=== PATIENT | female | born 1945 | race Caucasian/White ===

== ENCOUNTER 2018-11-04 10:13 | Inpatient (IN) | payer MEDICARE ==
[~2018-11-04] VITALS: Ht 172.7 cm; Wt 80.4 kg
--- NOTE | 2018-11-04 10:24 | NUR ---
PT BROUGHT IN BY AMBULANCE FOR BACK PROBLEMS PT ALERT WITH ORIENTATION X 3.
[2018-11-04] MEDS ORDERED: MORPHINE SULFATE INJ 4 MG/ML DISP.SYRIN IM ONE (11:00)
[2018-11-04] MEDS ORDERED: MORPHINE SULFATE INJ 4 MG/ML DISP.SYRIN ONE ×2 (11:02→12:32)
[2018-11-04] MEDS ORDERED: NAPROXEN 250 MG TABLET PO ONE (11:30)
[2018-11-04] MEDS ORDERED: HYDROCODONE/APAP 5/325MG 1 EACH TABLET PO ONE (11:30)
[2018-11-04] MEDS ORDERED: NAPROXEN 250 MG TABLET ONE (11:40)
[2018-11-04] MEDS ORDERED: HYDROCODONE/APAP 5/325MG 1 EACH TABLET ONE (11:40)
--- NOTE | 2018-11-04 12:27 | NUR ---
PT DISCHARGED BUT PAIN REMAINS RETURNED TO [facility] AWARE
[2018-11-04] MEDS ORDERED: MORPHINE SULFATE INJ 2 MG/ML DISP.SYRIN IM ONE (12:30)
--- NOTE | 2018-11-04 13:23 | NUR ---
PT CHANGED INTO HOS[PITAL GOWN PIV PLACED PENDING ADMISSION.
--- NOTE | 2018-11-04 13:24 | NUR ---
GAVE SECOND DOSE OF 6MG MORPHINE IM WASTED ONLY 2 MG
--- NOTE | 2018-11-04 13:28 | NUR ---
Called nursing catalyst plant supervisor and requested a med surg bed for this pt.
--- NOTE | 2018-11-04 13:28 | NUR ---
Antoine hospitalist, Minor Lipscomb NP
[2018-11-04] MEDS ORDERED: METH4TAB3 PO (13:31)
[2018-11-04] MEDS ORDERED: IBUP200C5 PO (13:31)
--- NOTE | 2018-11-04 13:38 | NUR ---
Daughter of patient, Brittany, would like a phone call when the pt is transferred to her med surg rm. cell phone - [phone]
--- NOTE | 2018-11-04 14:12 | NUR ---
pt is assigned to med surg rm#: [id number], dx: intractable back pain, and accepting: titi martinez np.
--- NOTE | 2018-11-04 15:12 | NUR ---
REPORT GIVEN TO TEZ LEONG ON 3 PT ADMITTED TO ROOM 310-2 ADMITTING MD LAINEZ
--- NOTE | 2018-11-04 15:30 | NUR ---
RN MS NOTES RECEIVED PT FROM E.R. STAFF, PT IS AWAKE, ALERT AND ORIENTED, NO COMPLAINT OF PAIN AT THIS TIME, PT SAID LONG SHE IS NOT MOVING, NOT IN DISTRESS, ASSISTED TO BED, MADE COMFORTABLE, ROOM SET UP ORIENTATION PROVIDED, VERBALIZED UNDERSTANDING, CALL LIGHT PLACED WITHIN REACH, AWAITING ADMITTING ORDERS FROM MD.
[2018-11-04 16:00] VITALS: BP 128/62
[2018-11-04 17:29] LABS: BASOPHILS % (AUTO) 0.3 % (0.0-2.0); EOSINOPHILS % (AUTO) 0.2 % (0.0-6.0); HEMATOCRIT 39 % (33-45); LYMPHOCYTES # (AUTO) 4.3 /CMM (0.8-4.8); MEAN CORPUSCULAR HGB CONC 34 g/dl (31.0-36.0); MEAN CORPUSCULAR VOLUME 87 fL (82-100); MONOCYTES # (AUTO) 0.7 /CMM (0.1-1.30); MONOCYTES % (AUTO) 5.5 % (2.0-12.0); NEUTROPHILS # (AUTO) 8.3 /CMM (1.8-8.9); PLATELET COUNT (AUTO) 346 /CMM (150-450); RED BLOOD CELL COUNT(AUTO) 4.47 MIL/uL (4.0-5.2); WHITE BLOOD COUNT (AUTO) 13.3 K/uL (4.3-11.0)
[2018-11-04] MEDS ORDERED: MAG HYDROX/AL HYDROX/SIMETH 30 ML UDC PO PRN (17:30)
[2018-11-04] MEDS ORDERED: MAGNESIUM HYDROXIDE 30 ML UDC PO PRN (17:30)
[2018-11-04] MEDS ORDERED: HYDROCODONE/APAP 5/325MG 1 EACH TABLET PO PRN (17:30)
[2018-11-04] MEDS ORDERED: Z GUARD REMEDY 2 OZ OINT TP PRN (17:30)
[2018-11-04] MEDS ORDERED: ACETAMINOPHEN 325 MG TABLET PO PRN (17:30)
[2018-11-04] MEDS ORDERED: ONDANSETRON HCL/PF 4 MG/2 ML VIAL IVP PRN (17:30)
[2018-11-04 17:43] LABS: ALBUMIN 3.8 g/dL (3.4-5.0); BILIRUBIN,TOTAL 0.6 mg/dL (0.2-1.0); CREATININE 0.7 mg/dL (0.6-1.3); MAGNESIUM 1.8 mg/dL (1.8-2.4); PHOSPHORUS 4.9 mg/dL (2.5-4.9); POTASSIUM 3.9 mmol/L (3.5-5.1)
[2018-11-04] MEDS: HYDROCODONE/APAP 10/325MG 1 EA TABLET PO PRN (17:48)
[2018-11-04 17:52] LABS: THYROID STIMULATING HORMONE 2.278 uIU/mL (0.358-3.74)
[2018-11-04] MEDS: ENOXAPARIN SODIUM 40 MG/0.4 ML DISP.SYRIN SQ SCH (18:30)
[2018-11-04] MEDS: MORPHINE SULFATE INJ 4 MG/ML DISP.SYRIN IV PRN ×2 (19:01→23:24)
--- NOTE | 2018-11-04 19:24 | NUR ---
RN MS NOTES PT IN BED, ALERT AND ORIENTED, SEEN AND EXAMINED BY TREVON LEA CODING TECH, PLAN OF CARE DISCUSSED WITH PT, VERBALIZED UNDERSTANDING, PAIN MEDICATION GIVEN ORDERED, OFFERED HOT PACKS AND PILLOWS, DAUGHTER AT BEDSIDE, NEEDS ATTENDED, ENDORSED TO NIGHT NURSE FOR CONTINUITY OF CARE.
--- NOTE | 2018-11-04 19:31 | NUR ---
MS STAFF EDUCATOR INITIAL NOTES PT CHECKED AND SEEN IN BED ON LYING POSITION WITH PILLOWS ON LEFT LEG BEHIND HER KNEE. AWAKE AND ALERT TALKING OT HER DAUGHTER SAYING HER PAIN MUCH BETTER AFTER THE SHOT BUT SEEMS WILL BE ON AND OFF SPECIALLY WHEN SHE'S MOVING. EDUCATE ABOUT HER MEDICATION AND THE HE BLOOD TEST IN AM AND PT UNDERSTOOD WELL. AWARE HOW TO USE THE CALL LIGHT AND ENCOURAGE HER TO USE IT IF SHE NEED SOME HELP OR ASSISTANCE. KEPT HER WARM AND COMFORTABLE AT LL TIMES. FAMILY AT THE BEDSIDE FOR NOW. WILL CONTINUE MONITORING.
[2018-11-04 20:00] VITALS: BP 126/65
--- NOTE | 2018-11-04 23:25 | NUR ---
MORPHINE GIVEN FOR C/O SEVERE L HIP PAIN. WILL CONT TO MONITOR,
--- NOTE | 2018-11-04 23:45 | NUR ---
hydroelectric systems technician notes pt still on too much pain like shooting pain special the left legs from left groin area to her foot even after the pain shot. and patient stated that worse than delivering her baby, 2 daughters at the bedside and one of them asking for any neuro surgeon and stating maybe she needs some operation right away or maybe you can ask someone to help to call neuro doctor. i told them i will call applications sales consultant Md to let him, know what's happening at this time . per hospital protocol i should call the charge nurse but she's busy also assisting the other nurse, so I called roundhouse supervisor Julia to talk to the family to calm them down while I'm calling the applications sales consultant MD. Spoke to Dr Fallon and told him what's the problem and he ordered Toradol 15mg IVP q 6 PRN.
--- NOTE | 2018-11-04 23:50 | NUR ---
ms ashwini notes after i spoke to dr Fallon I told the family and pt what pain medication he ordered but Pt refused and insisting to have muscle relaxant instead. called Dr Fallon and told him the patient refused toradol and insisting to have muscle relaxant. he ordered Flexeril tablet 10 mg Q 8 hrs PRN . noted and carried out.
[2018-11-04] MEDS: CYCLOBENZAPRINE 10 MG TABLET PO PRN (23:59)
--- NOTE | 2018-11-04 23:59 | NUR ---
ms ashwini notes Flexeril tablet 10 mg po given as ordered. Pt and her daughters stated "thank you ". will continue monitoring. place call light at reach. family will stay for a while until pt fall sleep.
--- NOTE | 2018-11-05 00:34 | NUR ---
ms mardaiaga notes pt daughter Brittany called and checking if her mom still sleeping. i told her that she's sleeping at this time without any discomfort noted. Pt daughter stated "thank you ' and saying she will come in am to speak to the doctor of her mom. Addendum: 11/05/18 at 0239 by LIZ MOORE LVN time called [phone] not [phone]
--- NOTE | 2018-11-05 01:45 | NUR ---
ms exhaust emissions automotive technician notes pt sleeping comfortably in bed at this time without any discomfort noted. breathing even and non-labored. kept her warm and comfortable at all times. place call light at reach.
--- NOTE | 2018-11-05 03:40 | NUR ---
MS WATER POLLUTION SPECIALIST NOTES PT WOKE UP AND HELPED TO USED THE BEDSIDE COMODE BUT NOTICED SHE FEEL PAIN SPECIALLY LEFT LEG, HELPED HER BACK TO BED EDUCATE HER TO TAKE A DEEP BREATH TO HELPED HER RELAXED . AFTER 5 MINUTES TALKING TO HER SHE STARTED TO BACK TO SLEEP , KEPT HER WARM AND COMFORTABLE MUCH POSSIBLE . WILL CONTINUE MONITORING
[2018-11-05] MEDS: MORPHINE SULFATE INJ 4 MG/ML DISP.SYRIN IV PRN ×3 (06:14→21:56)
--- NOTE | 2018-11-05 06:14 | NUR ---
MS PRETZEL COOKER NOTES PT WOKE UP WITH TO MUCH PAIN ON HER LEFT LEG NOTICED SHE'S HOLDING HER LEFT GROIN AREA . 08/20 MORPHINE 2 MG GIVEN BY CHEPE /RN VERÓNICA IVF STAYED AND ENCOURAGED HER TO DO TAKE DEEP BREATH AGAIN LIKE SHE DID BEFORE TO HELPED RELAXED AT THE SAME TIME.
--- NOTE | 2018-11-05 07:15 | NUR ---
MS PICKER CLOSING NOTES PT STILL AWAKE FEEL BETTER OF NOW AND ONLY WHEN SHE DID NOT MOVED HER LEGS NOW. REFUSED TO HAVE HER AM CARE AND SAYING SHE JUST WAIT FOR DAUGHTER BECAUSE SHE WILL BRING HER OWN PAJAMA AND AFTER HER FLEXERIL AT 8AM EVEN I TOLD HER THAT HER FLEXERIL IS PRN Q 8HRS. BUT I TOLD HER THAT I WILL ENDORSE TO AM NURSE. ALL DUE MEDS GIVEN AND ALL NEEDS MET . KEPT HER WARM AND COMFORTABLE AT ALL TIMES. PLACE CALL LIGHT AT REACH.
[2018-11-05 07:22] LABS: BASOPHILS # (AUTO) 0.1 /CMM (0.0-0.2); BASOPHILS % (AUTO) 0.6 % (0.0-2.0); EOSINOPHILS % (AUTO) 0.7 % (0.0-6.0); HEMATOCRIT 39 % (33-45); HEMOGLOBIN 13.2 g/dL (11.5-14.8); LYMPHOCYTES # (AUTO) 5.3 /CMM (0.8-4.8); LYMPHOCYTES % (AUTO) 42.7 % (20.0-44.0); MEAN CORPUSCULAR HGB CONC 34 g/dl (31.0-36.0); MEAN CORPUSCULAR VOLUME 87 fL (82-100); MONOCYTES # (AUTO) 0.7 /CMM (0.1-1.30); MONOCYTES % (AUTO) 5.9 % (2.0-12.0); NEUTROPHILS # (AUTO) 6.2 /CMM (1.8-8.9); NEUTROPHILS % (AUTO) 50.1 % (43.0-81.0); PLATELET COUNT (AUTO) 358 /CMM (150-450); RED BLOOD CELL COUNT(AUTO) 4.46 MIL/uL (4.0-5.2); WHITE BLOOD COUNT (AUTO) 12.3 K/uL (4.3-11.0)
[2018-11-05 07:47] LABS: CALCIUM, SERUM 8.6 mg/dL (8.5-10.1); CARBON DIOXIDE 25 mmol/L (21-32); CHLORIDE 104 mmol/L (98-107); CREATININE 0.7 mg/dL (0.6-1.3); GLUCOSE 86 mg/dL (74-106); MAGNESIUM 1.8 mg/dL (1.8-2.4); PHOSPHORUS 4.3 mg/dL (2.5-4.9); POTASSIUM 3.7 mmol/L (3.5-5.1); SODIUM SERUM 141 mmol/L (136-145); UREA NITROGEN, BLOOD 21 mg/dL (7-18)
--- NOTE | 2018-11-05 07:55 | NUR ---
MS RN OPENING NOTE RECEIVED PATIENT IN BED. SLEEPING, EASILY AROUSED WITH VERBAL STIMULI. ORIENTED X4. ON ROOM AIR, TOLERATING WELL. IN NO APPARENT DISTRESS OR DISCOMFORT AT THIS TIME. RESPIRATIONS EVEN AND UNLABORED. DENIES PAIN AND SOB AT THIS TIME. PATIENT IS ABLE TO COMMUNICATE NEEDS. USES BSC FOR ELIMINATION. PATIENT WITH LEFT AC 20G IVC SL, PATENT AND INTACT. PATIENT KEPT COMFORTABLE IN BED. ALL NEEDS ATTENDED. SAFETY MEASURES IN PLACE, BED IN LOW LOCKED POSITION, SIDE RAILS UP X2, CALL LIGHT WITHIN EASY REACH. WILL CONTINUE TO MONITOR.
[2018-11-05 08:00] VITALS: BP 129/85
[2018-11-05] MEDS: CYCLOBENZAPRINE 10 MG TABLET PO PRN ×2 (08:23→16:34)
[2018-11-05] MEDS: DOCUSATE SODIUM 100 MG CAPSULE PO SCH ×2 (08:23→16:34)
[2018-11-05] MEDS: HYDROCODONE/APAP 10/325MG 1 EA TABLET PO PRN ×2 (10:08→18:24)
[2018-11-05 16:00] VITALS: BP 145/85
--- NOTE | 2018-11-05 18:30 | NUR ---
MS RN CLOSING NOTE PATIENT IN BED. ALERT ORIENTED X4. ON ROOM AIR, TOLERATING WELL. IN NO APPARENT DISTRESS OR DISCOMFORT AT THIS TIME. RESPIRATIONS EVEN AND UNLABORED. DENIES PAIN AND SOB AT THIS TIME. PATIENT IS ABLE TO COMMUNICATE NEEDS. USES BSC/BATHROOM FOR ELIMINATION. PATIENT WITH LEFT FA 22G IVC SL, PATENT AND INTACT. PATIENT KEPT CLEAN AND COMFORTABLE IN BED. ALL NEEDS ATTENDED. SAFETY MEASURES IN PLACE, BED IN LOW LOCKED POSITION, SIDE RAILS UP X2, CALL LIGHT WITHIN EASY REACH. WILL ENDORSE TO PM NURSE FOR VENESSA.
[2018-11-05] MEDS: METHOCARBAMOL (500MG) 500 MG TABLET PO SCH (18:35)
--- NOTE | 2018-11-05 19:45 | NUR ---
MS RN OPENING NOTES RECEIVED PATIENT RESTING COMFORTABLY IN BED. ALERT ORIENTED X4. NO SIGNS OF ACUTE CARDIAC OR RESPIRATORY DISTRESS NOTED, ON ROOM AIR TOLERATING WELL, BREATHING EVEN AND UNLABORED, SATING AT 96%. IN NO APPARENT DISTRESS OR DISCOMFORT AT THIS TIME. PATIENT IS ABLE TO COMMUNICATE NEEDS. DAUGHTER AT BEDSIDE, USES BSC/BATHROOM FOR ELIMINATION.WITH IV ACCESS ON LEFT FA 22G SL INTACT AND PATENT.KEPT CLEAN AND COMFORTABLE IN BED. ALL SAFETY MEASURES IN PLACE, BED IN LOW LOCKED POSITION, SIDE RAILS UP X2, CALL LIGHT WITHIN EASY REACH. DAUGHTER AT BEDSIDE.WILL CONTINUE TO MONITOR ACCORDINGLY.
[2018-11-05 20:00] VITALS: BP 139/76
[2018-11-05] MEDS: ENOXAPARIN SODIUM 40 MG/0.4 ML DISP.SYRIN SQ SCH (21:00)
[2018-11-06] MEDS: CYCLOBENZAPRINE 10 MG TABLET PO PRN ×2 (00:20→07:05)
[2018-11-06] MEDS: METHOCARBAMOL (500MG) 500 MG TABLET PO SCH (02:05)
[2018-11-06] MEDS: MORPHINE SULFATE INJ 4 MG/ML DISP.SYRIN IV PRN ×2 (02:23→06:20)
--- NOTE | 2018-11-06 06:30 | NUR ---
MS RN CLOSING NOTE PATIENT IN BED RESTING. ALERT ORIENTED X4. ON ROOM AIR, TOLERATING WELL. IN NO APPARENT DISTRESS OR DISCOMFORT AT THIS TIME. RESPIRATIONS EVEN AND UNLABORED. DENIES PAIN AND SOB AT THIS TIME. PATIENT IS ABLE TO COMMUNICATE NEEDS. USES BSC/BATHROOM FOR ELIMINATION. PATIENT WITH LEFT FA 22G IVC SL, PATENT AND INTACT. PATIENT KEPT CLEAN AND COMFORTABLE IN BED. ALL NEEDS ATTENDED. SAFETY MEASURES IN PLACE, BED IN LOW LOCKED POSITION, SIDE RAILS UP X2, CALL LIGHT WITHIN EASY REACH. WILL ENDORSE TO AM NURSE FOR VENESSA.
[2018-11-06 06:59] LABS: CALCIUM, SERUM 8.4 mg/dL (8.5-10.1); CARBON DIOXIDE 28 mmol/L (21-32); CHLORIDE 106 mmol/L (98-107); CREATININE 0.7 mg/dL (0.6-1.3); GLUCOSE 94 mg/dL (74-106); SODIUM SERUM 142 mmol/L (136-145); UREA NITROGEN, BLOOD 17 mg/dL (7-18)
[2018-11-06] MEDS: HYDROCODONE/APAP 10/325MG 1 EA TABLET PO PRN (07:08)
--- NOTE | 2018-11-06 07:15 | NUR ---
MS RN NOTES PT WANTS TO GO HOME AGAINST MEDICAL ADVICE. PT WAS ADMITTED ON 11/04/18. UNABLE TO SEE NEURO SURGEON DR. KRAMER SINCE ADMISSION. PT HERE FOR INTRACTABLE BACK PAIN, L SIDED SCIATICA. PT WAS ABLE TO SEE DR QUINONEZ, PAIN MGT , YESTERDAY. DAUGHTER CAME IN EARLY TODAY. PER DAUGHTER VEDRA, THEY WANT TO SEE THEIR OWN NEURO SX. THEY BEEN HERE SINCE [facility] AND THEY CANNOT WAIT FOR THE DOCTOR TO COME. THEY ALREADY SET UP AN APPOINTMENT TODAY WITH THEIR NEURO SX. EXPLAINED TO THEM RISK AND BENEFITS OF LEAVING AMA. PT AWARE AND UNDERSTOOD IT WELL. CHARGE NURSE NOTIFIED. NURSING WHOLESALE BUYER NOTIFIED. MIGEL HARMON FROM [employer] NOTIFIED.
--- NOTE | 2018-11-06 07:25 | NUR ---
MS RN OPENING NOTE RECEIVED PATIENT AWAKE ALERT AND ORIENTED x4 IN BED LOCKED IN LOWEST POSITION WITH SIDE RAILS x2 FOR SAFETY. PATIENT STATED "7/10 LOW BACK PAIN" ON NUMBER SCALE. ABLE TO COMMUNICATE NEEDS. DAUGHTER AT BEDSIDE. CALL LIGHT WITHIN REACH. NO SOB OR DISTRESS NOTED ON ROOM AIR TOLERATING WELL. NO FACIAL GRIMACING NOTED, BUT GRASPING PAIN SITE. PER SAPPHIRE STYLUS GRINDER NURSE NOTIFIED- MIGEL HARMON ABOUT PATIENT WANTING TO LEAVE. WILL CONTINUE TO CONTINUITY OF CARE
--- NOTE | 2018-11-06 07:30 | NUR ---
MS RN NOTE PATIENT REQUESTING IV TO BE TAKEN OUT AT THIS TIME. IV REMOVED, SKIN INTACT
--- NOTE | 2018-11-06 07:41 | NUR ---
MS RN NOTE [facility] HERE FOR PATIENT PICKUP AT BEDSIDE
--- NOTE | 2018-11-06 08:05 | NUR ---
PSYCHOLOGY CLINICIAN NOTE PATIENT LEFT AMA. ANDREW HARMON NOTIFIED. SHEEP FARMER AND CHARGE NURSE NOTIFIED. INCIDENT REPORT DONE BY ENERGY TECHNICIAN NURSE. RECEIVED REPORT FROM SALO CHAO. ALL PATIENT BELONGINGS WITH PATIENT AND DAUGHTER AT DISCHARGE. IV REMOVED, SKIN INTACT. ALL INSTRUCTIONS GIVEN TO PATIENT AND DAUGHTER AT BEDSIDE, TEACH BACK RECEIVED. PATIENT DECLINED DISCHARGE PAPERWORK. ALERT AND ORIENTED x4 NO FACIAL GRIMACING AT THIS TIME NOTED. NO SOB OR DISTRESS NOTED ON ROOM AIR TOLERATING WELL. LEFT [facility]IA [facility]
== END 2018-11-06 06:50 | disposition left against medical advice (07) | DRG 551 ==
LOC: ER 10:15 → MED 14:48
PROVIDERS: ADMIT Nurse Practitioner Acute Care; ATTEND Nurse Practitioner Acute Care
DX: M48.061 Spinal stenosis, lumbar region without neurogenic claudication (principal); N17.0 Acute kidney failure with tubular necrosis; M47.26 Other spondylosis with radiculopathy, lumbar region; M54.32 Sciatica, left side; E78.5 Hyperlipidemia, unspecified; D72.829 Elevated white blood cell count, unspecified; G89.4 Chronic pain syndrome; M12.88 Other specific arthropathies, not elsewhere classified, other specified site
CPT/HCPCS: 36415; 80048-TC; 80053-TC; 80061-TC; 83735-TC; 84100-TC; 84443-TC; 85025-TC; A4606; G0378; J1650; J2270; Z7610